=== PATIENT | female | born 2000 | race African-American/Black ===

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

== ENCOUNTER 2018-02-24 16:27 | Emergency (ER) | payer SELFPAY ==
[2018-02-24 16:57] LABS: #Basophils 0.1 thou/uL (0.0-0.2); #Eosinphils 0.2 thou/uL (0.0-0.7); #Lymphocytes 1.9 thou/uL (1.20-3.40); #Monocytes 0.4 thou/uL (0.11-0.59); #Neutrophils 2.4 thou/uL (1.40-6.50); %Basophils 1.1 % (0.0-1.0); %Eosinophils 3.1 % (0.0-10.0); %Lymphocytes 39.2 % (28.0-48.0); %Monocytes 7.9 % (0.0-4.0); %Neutrophils 48.7 % (31.0-61.0); Mean Corpuscular HGB CONC 33.3 g/dL (32.0-36.0); Mean Corpuscular Hemoglobin 32.5 pg (25.0-35.0); Mean Corpuscular Volume 97.7 fL (78.0-98.0); Mean Platelet Volume 8.2 fL (7.4-10.4); Platelet Count 268 thou/uL (130-400); Red Blood Cell (RBC) Count 3.38 mill/uL (4.00-5.20); White Blood Cell (WBC) Count 4.8 thou/uL (4.8-10.8)
[2018-02-24 17:19] LABS: ALT (SGPT) Less than 7 U/L (8-55); AST (SGOT) 14 U/L (5-34); Albumin 4.2 g/dL (3.5-5.0); Alkaline Phosphatase 70 U/L (40-150); Anion Gap 11 mmol/L (10-20); BUN (Urea Nitrogen) 6 mg/dL (7.0-18.7); Bilirubin, Total 0.5 mg/dL (0.2-1.2); Calc. Creatinine Clearance 0 mL/min (70-130); Calcium 9.3 mg/dL (7.8-10.44); Carbon Dioxide 22 mmol/L (22-29); Chloride 107 mmol/L (98-107); Estimated GFR-MDRD Greater than 90; Glucose 99 mg/dL (70-105); Lipase 11 U/L (8-78); Potassium 3.7 mmol/L (3.5-5.1); Protein, Total 7.2 g/dL (6.0-8.3); Sodium 136 mmol/L (136-145)
[2018-02-24 17:27] LABS: Bilirubin Small (Negative); Blood, Urine Negative (Negative); Clarity CLEAR (Clear); Glucose, Urine (Dipstick) Negative (Negative); Leukocyte Negative (Negative); Nitrite Negative (Negative); Protein, Urine (Dipstick) Trace mg/dL (Neg-Trace); Specific Gravity, Urine 1.033 (1.002-1.036); pH, Urine 5.5 (5.0-9.0)
[2018-02-24 17:29] LABS: Pregnancy Test - Urine (BHCG) Negative (Negative); Pregu Control Background? CLEAR/WHITE (CLR/WHITE); Pregu Control Bar Appear? YES (CONTROL BAR); Specific Gravity 1.033 (1.002-1.036)
== END 2018-02-24 18:41 | disposition home or self-care (01) ==
LOC: ERS 16:27
DX: R10.30 Lower abdominal pain, unspecified (principal)
CPT/HCPCS: 36415; 80053; 81003; 81025; 83690; 85025; 99284

== ENCOUNTER 2018-04-16 17:36 | Emergency (ER) | payer SELFPAY | END 2018-04-16 18:25 | disposition home or self-care (01) | LOC: ERS 17:36 | DX: H92.01 Otalgia, right ear (principal) | CPT/HCPCS: 99282 ==

== ENCOUNTER 2018-05-17 16:03 | Emergency (ER) | payer SELFPAY ==
[2018-05-17] MEDS ORDERED: Benzonatate 100 MG CAP ONE (16:43)
== END 2018-05-17 17:15 | disposition home or self-care (01) ==
LOC: ERS 16:03
DX: K08.89 Other specified disorders of teeth and supporting structures (principal)
CPT/HCPCS: 99282

== ENCOUNTER 2018-06-26 09:54 | Emergency (ER) | payer SELFPAY | END 2018-06-26 10:17 | disposition home or self-care (01) | LOC: ERS 09:54 | DX: K02.9 Dental caries, unspecified (principal) | CPT/HCPCS: 99282 ==

== ENCOUNTER 2018-07-13 15:06 | Emergency (ER) | payer SELFPAY | END 2018-07-13 15:20 | disposition home or self-care (01) | LOC: ERS 15:06 | DX: K03.81 Cracked tooth (principal); K02.9 Dental caries, unspecified | CPT/HCPCS: 99282 ==

== ENCOUNTER 2018-08-08 20:38 | Emergency (ER) | payer SELFPAY ==
[2018-08-08 20:57] LABS: Bilirubin Negative (Negative); Blood, Urine Negative (Negative); Clarity CLEAR (Clear); Glucose, Urine (Dipstick) Negative (Negative); Leukocyte Small (Negative); Nitrite Negative (Negative); Protein, Urine (Dipstick) Trace mg/dL (Neg-Trace); Specific Gravity, Urine 1.024 (1.002-1.036)
[2018-08-08 20:59] LABS: Bacteria/HPF Rare-Few HPF (None Seen); Hyaline Casts/LPF 4-6 HYALINE CAST LPF (0-3 Hyaline); Pregnancy Test - Urine (BHCG) Negative (Negative); Pregu Control Background? CLEAR/WHITE (CLR/WHITE); Pregu Control Bar Appear? YES (CONTROL BAR); RBC/HPF 0-3 HPF (0-3); Specific Gravity 1.024 (1.002-1.036)
[2018-08-08 21:02] LABS: #Basophils 0.1 thou/uL (0.0-0.2); #Eosinphils 0.1 thou/uL (0.0-0.7); #Lymphocytes 2.1 thou/uL (1.20-3.40); #Monocytes 0.5 thou/uL (0.11-0.59); #Neutrophils 2.7 thou/uL (1.40-6.50); %Basophils 1.8 % (0.0-1.0); %Eosinophils 1.5 % (0.0-10.0); %Lymphocytes 38.2 % (28.0-48.0); %Monocytes 8.9 % (0.0-4.0); %Neutrophils 49.6 % (31.0-61.0); Hemoglobin 10.7 g/dL (12.0-16.0); Mean Corpuscular Hemoglobin 31.5 pg (25.0-35.0); Mean Corpuscular Volume 95.4 fL (78.0-98.0); Mean Platelet Volume 8.1 fL (7.4-10.4); Platelet Count 286 thou/uL (130-400); RBC Distribution Width 12.3 % (11.5-14.5); Red Blood Cell (RBC) Count 3.39 mill/uL (4.00-5.20); White Blood Cell (WBC) Count 5.4 thou/uL (4.8-10.8)
[2018-08-08 21:19] LABS: ALT (SGPT) 10 U/L (8-55); AST (SGOT) 14 U/L (5-34); Albumin 4.4 g/dL (3.5-5.0); Alkaline Phosphatase 76 U/L (40-150); Anion Gap 10 mmol/L (10-20); BUN (Urea Nitrogen) 8 mg/dL (7.0-18.7); Bilirubin, Total 0.5 mg/dL (0.2-1.2); Calc. Creatinine Clearance 0 mL/min (70-130); Calcium 9.7 mg/dL (7.8-10.44); Carbon Dioxide 23 mmol/L (22-29); Chloride 105 mmol/L (98-107); Estimated GFR-MDRD Greater than 90; Globulin 3.1 g/dL (2.4-3.5); Glucose 88 mg/dL (70-105); Potassium 3.3 mmol/L (3.5-5.1); Protein, Total 7.5 g/dL (6.0-8.3); Sodium 135 mmol/L (136-145)
== END 2018-08-08 21:50 | disposition home or self-care (01) ==
LOC: ERS 20:38
DX: N39.0 Urinary tract infection, site not specified (principal)
CPT/HCPCS: 36415; 80053; 81003; 81015; 81025; 85025; 99284

== ENCOUNTER 2018-09-23 16:21 | Emergency (ER) | payer SELFPAY | END 2018-09-23 17:15 | disposition home or self-care (01) | LOC: ERS 16:21 | DX: K02.9 Dental caries, unspecified (principal) | CPT/HCPCS: 99281 ==

== ENCOUNTER 2018-11-01 21:25 | Emergency (ER) | payer SELFPAY | END 2018-11-01 21:54 | disposition home or self-care (01) | LOC: ERS 21:25 | DX: K03.81 Cracked tooth (principal) | CPT/HCPCS: 99281 ==

== ENCOUNTER 2019-04-27 23:10 | Emergency (ER) | payer OTHER ==
[2019-04-27 23:35] LABS: #Lymphocytes 1.2 thou/uL (1.20-3.40); #Monocytes 0.4 thou/uL (0.11-0.59); #Neutrophils 5.7 thou/uL (1.40-6.50); %Basophils 0.5 % (0.0-1.0); %Eosinophils 0.2 % (0.0-10.0); %Lymphocytes 16.2 % (21.0-51.0); %Monocytes 5.2 % (0.0-10.0); %Neutrophils 77.8 % (42.0-75.0); Hemoglobin 11.4 g/dL (12.0-16.0); Mean Corpuscular HGB CONC 35.1 g/dL (32.0-36.0); Mean Corpuscular Hemoglobin 32.6 pg (27.0-31.0); Mean Platelet Volume 8.4 fL (7.4-10.4); Platelet Count 287 thou/uL (130-400); RBC Distribution Width 12.2 % (11.5-14.5); White Blood Cell (WBC) Count 7.3 thou/uL (4.8-10.8)
[2019-04-27 23:39] LABS: Bacteria/HPF 3+ HPF (None Seen); Bilirubin Negative (Negative); Blood, Urine 3+ (Negative); Clarity Turbid (Clear); Glucose, Urine (Dipstick) Normal (Negative); Leukocyte 500 Leu/uL (Negative); Mucous/LPF 1+ LPF (<2+); Nitrite Negative (Negative); Protein, Urine (Dipstick) 100 mg/dL (Neg-Trace); RBC/HPF 0-3 HPF (0-3); Squamous Epithelial 21-50 HPF (0-3); Urobilinogen Normal mg/dL (Less than 2)
[2019-04-27 23:56] LABS: ALT (SGPT) 13 U/L (8-55); AST (SGOT) 27 U/L (5-34); Albumin 4.5 g/dL (3.5-5.0); Alkaline Phosphatase 77 U/L (40-110); Anion Gap 12 mmol/L (10-20); BUN (Urea Nitrogen) 5 mg/dL (7.0-18.7); Bilirubin, Total 0.8 mg/dL (0.2-1.2); Calc. Creatinine Clearance 0 mL/min (70-130); Calcium 9.8 mg/dL (7.8-10.44); Carbon Dioxide 20 mmol/L (22-29); Chloride 105 mmol/L (98-107); Estimated GFR-MDRD Greater than 90; Globulin 3.2 g/dL (2.4-3.5); Glucose 117 mg/dL (70-105); Lipase 8 U/L (8-78); Potassium 3.5 mmol/L (3.5-5.1); Protein, Total 7.7 g/dL (6.0-8.3); Sodium 133 mmol/L (136-145)
[2019-04-28] MEDS ORDERED: Metoclopramide HCl 10 MG/2 ML VIAL ONE (01:01)
== END 2019-04-28 03:26 | disposition home or self-care (01) ==
LOC: ERS 23:10
DX: O20.9 Hemorrhage in early pregnancy, unspecified (principal); O21.9 Vomiting of pregnancy, unspecified; Z3A.01 Less than 8 weeks gestation of pregnancy
CPT/HCPCS: 36415; 80053; 81003; 81015; 83690; 84702; 85025; 87077; 87086; 87186; 99284; J2765

== ENCOUNTER 2019-12-01 21:51 | Day surgery (SDC) | payer OTHER ==
[2019-12-01 23:00] VITALS: BMI 25.6
[2019-12-01] MEDS ORDERED: hydrALAZINE 20 MG/ML VIAL SLOW IVP PRN (23:22)
[2019-12-01 23:43] LABS: Amnisure Internal Control QC ACCEPTABLE (ACCEPTABLE); Amnisure Test No Membranes Rupture (No Rupture)
[2019-12-02] MEDS ORDERED: Promethazine HCl 25 MG/ML VIAL IM SCH (00:15)
[2019-12-02] MEDS ORDERED: Morphine 4 MG/ML VIAL IM SCH (00:15)
--- NOTE | 2019-12-02 00:50 | PRG ---
DATE OF SERVICE: 12/02/2019 PRIMARY OB: Ms. Maria D Rivera. CHIEF COMPLAINT: Abdominal pains. HISTORY OF PRESENT ILLNESS: The patient is a 19-year-old, G1, P0 female with an intrauterine at 37 weeks and 2 days, presenting to Labor and Delivery with complaints of abdominal pains that she says began about a week ago, but it gotten worse over the course of the day today. She reports that the pain that she saw Ms. Killian in clinic today and was told that she was about 4 cm. She reports the pain seems to be most best described as sharp, worse with activity and movement such as trying to get up, got out of the bed, walking and other activity. The patient reports that she has had a little bit of watery discharge today also. She denies vaginal bleeding. She denies fever, cough, chest pain, shortness of breath, nausea, vomiting, diarrhea, constipation, hip problems, knee problems, or muscle weakness. PAST MEDICAL HISTORY: Negative. PAST SURGICAL HISTORY: Negative. ALLERGIES: NO KNOWN DRUG ALLERGIES. MEDICATIONS: vitamins. OB LABS: Unavailable at time of dictation. SOCIAL HISTORY: Denies drug, alcohol, or tobacco use. REVIEW OF SYSTEMS: Per HPI. PHYSICAL EXAMINATION: VITAL SIGNS: Blood pressure 112/55, heart rate of 77, and respiratory rate of 18. GENERAL: She appears to be in no acute distress. She is alert, oriented, cooperative, and pleasant to interact with. HEAD: Normocephalic and atraumatic. LUNGS: Clear to auscultation bilaterally. HEART: Has regular rate and rhythm. ABDOMEN: Gravid and soft. EXTREMITIES: Nontender and nonedematous. CERVICAL EXAM: Per nursing staff is 3, 80, -1 station. DIAGNOSTIC DATA: heart tracing shows the fetus with a baseline in the 140s with moderate long-term variability, positive 15 x 15 accelerations, no decelerations. Tocometer showing a lot of irritability, not consistently felt by the patient. AmniSure test is negative. ASSESSMENT AND PLAN: The patient is a 19-year-old female with an intrauterine at 37 weeks and 3 days, having contractions, but I do not believe this is the primary source of her pain. As by history, her pain is most consistent with musculoskeletal pains of . She has had no cervical change from her visit in the office earlier in the day. The patient [place] town. She and her mom are both anxious to get home. She has asked for some pain medicine to help or have some rest for few hours. She has been given term labor precautions. She will be given 6 mg of morphine and 25 of Phenergan IM. Fetus has a category 1 tracing and reactive NST. The patient has been asked to keep her appointment with her primary provider, Ms. Maria D Rivera, certified nurse-light cleaner. Job ID: [id number]
== END 2019-12-02 01:15 | disposition home or self-care (01) ==
LOC: L&D/OP 21:51
PROVIDERS: ATTEND Obstetrics & Gynecology
DX: O99.89 Other specified diseases and conditions complicating pregnancy, childbirth and the puerperium (principal); R10.9 Unspecified abdominal pain; O47.1 False labor at or after 37 completed weeks of gestation; Z3A.37 37 weeks gestation of pregnancy; Z91.048 Other nonmedicinal substance allergy status
CPT/HCPCS: 59025; 84112; 96372; 99282; J2270; J2550

== ENCOUNTER 2019-12-03 11:19 | Observation (INO) | payer OTHER ==
[2019-12-03 11:50] VITALS: BP 120/82; TEMP 98.7; BMI 25.6
[2019-12-03] MEDS ORDERED: hydrALAZINE 20 MG/ML VIAL SLOW IVP PRN ×2 (13:41→13:49)
[2019-12-03] MEDS ORDERED: Morphine 4 MG/ML VIAL IM SCH (13:45)
[2019-12-03] MEDS ORDERED: Promethazine HCl 25 MG/ML VIAL IM SCH (13:45)
[2019-12-03] MEDS ORDERED: Promethazine HCl 25 MG/ML VIAL IM PRN (13:49)
[2019-12-03] MEDS ORDERED: Ondansetron PF 4 MG/2 ML Vial IVP PRN (13:49)
[2019-12-03] MEDS ORDERED: Lactated Ringer's 1,000 ML IV SCH (14:00)
--- NOTE | 2019-12-03 15:19 | ULT ---
Exam: Limited OB ultrasound HISTORY: Vaginal bleeding; assess for placental abruption COMPARISON: None TECHNIQUE: Limited OB ultrasound was performed FINDINGS: Presentation: Vertex Cervix: Cannot be assessed due to shadowing Placenta: Maternal right. Amniotic fluid index: 10.8 cm heart tones: 135 bpm biometry: BPD: 9.17 cm, 37 weeks 2 days Head circumference: 33.34 cm, 38 weeks 1 day Abdominal circumference: 33.39 cm, 37 weeks 2 days Femur length: 7.09 cm, 36 weeks 2 days Average age by sonography is 37 weeks 2 days Estimated weight is 3129 g +/- 4 163 g Estimated weight percentage: 40% IMPRESSION: 1. Single intrauterine gestation. heart tones. 2. Average age by sonography is 37 weeks 2 days. 3. No evidence of placental abruption. Findings of the study conveyed to Adina L&D nurse on 12/03/2019 at 3:16 PM Code CR
--- NOTE | 2019-12-04 03:40 | SS ---
DATE OF ADMISSION: 12/03/2019 DATE OF DISCHARGE: 12/03/2019 PRIMARY OB: Ms. Maria D Rivera. CHIEF COMPLAINT: Abdominal pains. HISTORY OF PRESENT ILLNESS: Patient is a 19-year-old, G1, P0 female with an intrauterine at 37 weeks and 4 days, presenting to Labor and Delivery with increasing uterine contractions, for which she had presented a couple of days earlier. Patient denies leakage of fluid or vaginal bleeding. She denies fever, headache, chest pain, shortness of breath, nausea, vomiting, diarrhea, constipation, hip problems, knee problems, muscle weakness, urinary urgency or frequency. Patient did report that she had some bleeding and a pad earlier in the day that looked like period bleeding. PAST MEDICAL HISTORY: Negative. PAST SURGICAL HISTORY: Negative. ALLERGIES: NO KNOWN DRUG ALLERGIES. MEDICATIONS: vitamins. OB LABS: Unavailable at the time of dictation. SOCIAL HISTORY: Denies drug, alcohol, or tobacco use. REVIEW OF SYSTEMS: Per HPI. PHYSICAL EXAMINATION: VITAL SIGNS: Blood pressure 120/82, heart rate of 100, respiratory rate of 18, saturating 100% on room air, and temperature 98.7. GENERAL: She appears to be in no acute distress. She is alert, oriented, cooperative, and pleasant to interact with. HEAD: Normocephalic and atraumatic. LUNGS: Clear to auscultation bilaterally. HEART: Has regular rate and rhythm. ABDOMEN: Gravid, soft, and nontender. EXTREMITIES: Nontender and nonedematous. CERVICAL EXAM: 4, 90, and -1 station, which is essentially unchanged from approximately 36 hours previous. heart tracing shows the fetus with a baseline in the 140s with marked long-term variability, positive accelerations, no decelerations. Tocometer showing a great deal of irritability and long stretches of contractions about every minute. Reexamination of the maternal abdomen again confirmed that the abdomen does not show any significant tenderness in-between contractions. LABORATORIES: Fibrinogen is 478. ULTRASOUND: ultrasound is performed and showed no obvious evidence of abruption. Given the overall marked variability and the very frequent irregular contraction pattern, decision was made to keep the patient for observation. The ultrasound and fibrinogen were drawn looking for evidence of abruption. However, those did not show any concerning signs. The patient received IV fluids and was in observation for approximately 6 hours by which time the tracing had converted to a baseline in the 130s with moderate long-term variability, positive 15 x 15 accelerations and the contraction pattern, though irregular did demonstrate contractions about every 6 to 7 minutes with short bursts of irritability. Again, patient during her stay was given 6 mg of morphine IM and 25 of Phenergan IM, for which she was able to rest comfortably. When patient was discharged, she had good pain control. Fetus had a category 1 tracing and had no evidence of active labor. Patient was discharged home with term labor precautions and was counseled to follow up with her primary OB as scheduled. Job ID: [id number]
== END 2019-12-03 17:31 | disposition home health service, planned readmission (86) ==
LOC: L&D/OP 11:19 → L&D 13:51
PROVIDERS: ADMIT Obstetrics & Gynecology; ATTEND Obstetrics & Gynecology
DX: O47.1 False labor at or after 37 completed weeks of gestation (principal); Z3A.37 37 weeks gestation of pregnancy; Z88.8 Allergy status to other drugs, medicaments and biological substances
CPT/HCPCS: 36415; 76815; 85384; 86850; 86900; 86901; 96372; G0378; J2270; J2550

== ENCOUNTER 2019-12-06 11:19 | Inpatient (IN) | payer OTHER ==
[~2019-12-06 11:19] MED LIST: Bupivacaine HCl 0.5%/Epinephrine 1:200,000/PF 30 ml Vial ONE
[2019-12-06] MEDS ORDERED: hydrALAZINE 20 MG/ML VIAL SLOW IVP PRN (15:23)
[2019-12-06] MEDS ORDERED: Lidocaine 1% (PF) 30 ML VIAL SC PRN (15:23)
[2019-12-06] MEDS ORDERED: Ondansetron PF 4 MG/2 ML Vial IVP PRN (15:23)
[2019-12-06] MEDS ORDERED: Butorphanol Tartrate 1 MG/ML VIAL SLOW IVP PRN (15:23)
[2019-12-06] MEDS ORDERED: Promethazine HCl 25 MG/ML VIAL IM PRN (15:23)
[2019-12-06] MEDS ORDERED: Ibuprofen 800 MG TAB PO PRN (15:23)
[2019-12-06] MEDS ORDERED: HYDROcodone/Acetaminophen 5/325 mg Tablet PO PRN ×2 (15:23)
[2019-12-06] MEDS ORDERED: NS / Oxytocin 40 units/1000ml 1,000 ML IV PRN (15:23)
[2019-12-06] MEDS ORDERED: Penicillin G Potassium 5 MILL.UNITS in Sodium Chloride 0.9% 100 ML IVPB SCH (15:30)
[2019-12-06] MEDS ORDERED: NS w/ Oxytocin 10 units 500 ML IV SCH (15:30)
[2019-12-06] MEDS ORDERED: Penicillin G Potassium 5 MILL.UNITS VIAL ONE (15:33)
[2019-12-06 15:37] LABS: Hemoglobin 11.6 g/dL (12.0-16.0); Mean Corpuscular HGB CONC 34.2 g/dL (32.0-36.0); Mean Corpuscular Hemoglobin 33.6 pg (27.0-31.0); Mean Corpuscular Volume 98.5 fL (78.0-98.0); Mean Platelet Volume 9.6 fL (7.4-10.4); Platelet Count 180 thou/uL (130-400); RBC Distribution Width 11.5 % (11.5-14.5); Red Blood Cell (RBC) Count 3.45 mill/uL (4.20-5.40); White Blood Cell (WBC) Count 7.9 thou/uL (4.8-10.8)
[2019-12-06 15:45] VITALS: BMI 25.6
[2019-12-06] MEDS: Lactated Ringer's 1,000 ML IV SCH (16:04)
[2019-12-06 16:17] LABS: Syphilis Antibody Nonreactive (Nonreactive); Syphilis Antibody Index 0.11 S/CO (<1.00 Non-Reactive)
[2019-12-06 16:18] LABS: HBSAg Index 0.22 S/CO (0-0.99); Hep B Surf Ag Non-Reactive S/CO (NonReactive)
--- NOTE | 2019-12-06 16:48 | PDOC.LDHP ---
Labor and Delivery H&P Chief complaint: contractions HPI: Pt is having contractions again. Last night they were irregular again. But today they started getting in a better pattern. Due date: 12/20/19 Dating criteria: second trimester ultrasound Grav: 1 Para: 0 OB History Details: CT + neg JORDIN 09/28/19 Current complications: other (Late to care) Current medications: pre- vitamins Previous surgical history: none Allergies/Adverse Reactions: Allergies Allergy/AdvReac Type Severity Reaction Status Date / Time nickel Allergy Verified 12/03/19 11:47 No Known Drug Allergies Allergy Verified 12/02/19 00:39 Social history: none - Physical Exam Vital signs reviewed and normal: yes General: breathing through contractions Lungs: nonlabored breathing Abdomen: gravid FHT: category 1 - Vaginal Exam cm dilated: 5 Effacement: 90% Station: 0 - OB Labs Blood type: O RH: positive Antibody Screen: negative HIV: negative RPR: negative HEPSAg: negative 1 hour GCT: negative GBS: positive Urine drug screen: negative Rubella: immune - Assessment L&D Assessment: term patient in labor - Plan Plan: admit to L&D, GBS antibiotic prophylaxis, anesthesia consult for pain management (AROM clear fluid.)
[2019-12-06] MEDS ORDERED: Fentanyl 4 mcg/Bup 0.1% Cadd 100 ML ONE (17:02)
[2019-12-06] MEDS: Penicillin G 2.5 MILL.units 2.5 MILL.UNITS in Premix Bag 1 BAG IVPB SCH (19:45)
[2019-12-06] MEDS ORDERED: Acetaminophen 500 MG TAB PO SCH (20:15)
--- NOTE | 2019-12-06 22:46 | PDOC.OPDEL ---
OB Operative/Delivery Note Delivery Dr/Surgeon: Ted Rivera Pre-Delivery Diagnosis: active labor Procedure/Post Delivery Dx: spontaneous vaginal delivery Weeks gestation: 38 Anesthesia: epidural - Findings A Sex: male Weight: 6 lb 13 oz - 1 min: 8 - 5 min: 9 - Additional Findings/Plan Placenta delivered: spontaneous Repaired Obstetrical Laceration: none Estimated blood loss: 150mL Post delivery plan: routine recovery
[2019-12-07] MEDS ORDERED: Bisacodyl 10 MG SUPP PR PRN (01:19)
[2019-12-07] MEDS ORDERED: NS / Oxytocin 40 units/1000ml 1,000 ML IV SCH (01:19)
[2019-12-07] MEDS ORDERED: hydrALAZINE 20 MG/ML VIAL SLOW IVP PRN (01:19)
[2019-12-07] MEDS ORDERED: Methylergonovine 0.2 MG/ML VIAL IM PRN (01:19)
[2019-12-07] MEDS ORDERED: Milk Of Magnesia 30 ML UDCUP PO PRN (01:19)
[2019-12-07] MEDS ORDERED: Benzocaine-Menthol 82.5 ML CAN TOP PRN (01:19)
[2019-12-07] MEDS ORDERED: HYDROcodone/Acetaminophen 5/325 mg Tablet PO PRN ×2 (01:19)
[2019-12-07] MEDS ORDERED: Misoprostol 200 MCG TAB VAG PRN (01:19)
[2019-12-07] MEDS: Ibuprofen 800 MG TAB PO SCH ×3 (05:26→21:02)
[2019-12-07] MEDS: Ferrous Sulfate 325 MG TAB PO SCH ×2 (08:49→16:38)
[2019-12-07] MEDS: Prenatal Vitamin 1 TAB PO SCH (08:49)
[2019-12-07] MEDS: Docusate Calcium (SURFAK) 240 MG CAP PO SCH ×2 (08:49→21:02)
[2019-12-07] MEDS ORDERED: Adacel (T-DAP) 0.5 ML SYRINGE IM ONE (09:00)
[2019-12-07] MEDS: Lactated Ringer's 1,000 ML IV SCH (16:39)
[2019-12-07] MEDS: Penicillin G 2.5 MILL.units 2.5 MILL.UNITS in Premix Bag 1 BAG IVPB SCH (16:39)
[2019-12-08] MEDS: Ibuprofen 800 MG TAB PO SCH ×2 (06:25→15:01)
[2019-12-08] MEDS: Docusate Calcium (SURFAK) 240 MG CAP PO SCH (08:28)
[2019-12-08] MEDS: Prenatal Vitamin 1 TAB PO SCH (08:28)
[2019-12-08] MEDS: Ferrous Sulfate 325 MG TAB PO SCH (08:29)
[2019-12-08 09:25] VITALS: BP 114/59; TEMP 98.2
--- NOTE | 2019-12-08 12:50 | PDOC.PP ---
Post Progress Note Post Day #: 1 Subjective: Pt is doing well. Up in shower. No questions. PO intake tolerated: yes Flatus: yes Ambulation: yes Vital Signs (12 hours) Temp Pulse Resp BP 12/08/19 08:00 98.2 F 66 16 114/59 L Weight Weight 140 lb - Physical Examination General: NAD Respiratory: non-labored breathing Abdominal: no distention Extremities: negative homans (B) Skin: no rash Neurological: no gross focal deficits Psychiatric: A&Ox3, normal affect Result Diagrams: 12/06/19 15:29 Additional Labs: Post Labs Blood Type O POSITIVE 12/06/19 15:29 Hep Bs Antigen Non-Reactive S/CO (NonReactive) 12/06/19 15:29 (1) (spontaneous vaginal delivery) Code(s): O80 - ENCOUNTER FOR FULL-TERM UNCOMPLICATED DELIVERY Status: Acute - Assessment/Plan A: s/p with NML PPD1 exam. P: routine pp care
== END 2019-12-08 16:10 | disposition home or self-care (01) | DRG 807 ==
LOC: L&D/OP 11:19 → L&D 15:53 → 3SW 12-07 01:44
PROVIDERS: ADMIT Obstetrics & Gynecology; ATTEND Advanced Practice Midwife
PROC: 10E0XZZ Delivery of Products of Conception, External Approach (ICD-10-PCS; principal; 2019-12-06)
PROC: 10907ZC Drainage of Amniotic Fluid, Therapeutic from Products of Conception, Via Natural or Artificial Opening (ICD-10-PCS; 2019-12-06)
DX: O99.824 Streptococcus B carrier state complicating childbirth (principal); Z37.0 Single live birth; Z3A.38 38 weeks gestation of pregnancy
CPT/HCPCS: 36415; 51702; 85027; 86780; 86850; 86900; 86901; 87340; 99285; J0595; J0670; J2405; J2540; J2590

== ENCOUNTER 2020-04-01 19:01 | Emergency (ER) | payer OTHER ==
[2020-04-01 20:01] LABS: Bilirubin Negative (Negative); Blood, Urine Negative (Negative); Clarity Clear (Clear); Glucose, Urine (Dipstick) Normal (Negative); Ketone, Urine Negative (Negative); Leukocyte Negative Leu/uL (Negative); Nitrite Negative (Negative); Protein, Urine (Dipstick) 10 mg/dL (Neg-Trace); Specific Gravity, Urine 1.028 (1.002-1.036); Urobilinogen Normal mg/dL (Less than 2); pH, Urine 6.5 (5.0-9.0)
[2020-04-01 20:02] LABS: Pregnancy Test - Urine (BHCG) Negative (Negative); Pregu Control Background? CLEAR/WHITE (CLR/WHITE); Pregu Control Bar Appear? YES (CONTROL BAR); Specific Gravity 1.028 (1.002-1.036)
[2020-04-01 20:09] LABS: #Eosinphils 0.1 thou/uL (0.0-0.7); #Lymphocytes 2.3 thou/uL (1.20-3.40); #Monocytes 0.4 thou/uL (0.11-0.59); #Neutrophils 2.2 thou/uL (1.40-6.50); %Basophils 0.8 % (0.0-1.0); %Eosinophils 2.3 % (0.0-10.0); %Lymphocytes 45.2 % (21.0-51.0); %Monocytes 7.8 % (0.0-10.0); Hemoglobin 12.2 g/dL (12.0-16.0); Mean Corpuscular HGB CONC 34.3 g/dL (32.0-36.0); Mean Corpuscular Volume 96.3 fL (78.0-98.0); Mean Platelet Volume 8.6 fL (7.4-10.4); Platelet Count 255 thou/uL (130-400); RBC Distribution Width 11.4 % (11.5-14.5); Red Blood Cell (RBC) Count 3.69 mill/uL (4.20-5.40)
[2020-04-01] MEDS ORDERED: Ibuprofen 200 MG TAB ONE (20:11)
[2020-04-01] MEDS ORDERED: Acetaminophen 500 MG TAB ONE (20:11)
[2020-04-01 20:29] LABS: ALT (SGPT) 10 U/L (8-55); AST (SGOT) 12 U/L (5-34); Alkaline Phosphatase 90 U/L (40-110); Anion Gap 11 mmol/L (10-20); BUN (Urea Nitrogen) 9 mg/dL (7.0-18.7); Bilirubin, Total 0.4 mg/dL (0.2-1.2); Calc. Creatinine Clearance 0 mL/min (70-130); Calcium 8.8 mg/dL (7.8-10.44); Carbon Dioxide 21 mmol/L (22-29); Chloride 109 mmol/L (98-107); Estimated GFR-MDRD Greater than 90; Globulin 2.9 g/dL (2.4-3.5); Glucose 108 mg/dL (70-105); Potassium 3.7 mmol/L (3.5-5.1); Protein, Total 6.9 g/dL (6.0-8.3); Sodium 137 mmol/L (136-145)
== END 2020-04-01 21:31 | disposition home or self-care (01) ==
LOC: ERS 19:01
DX: R10.30 Lower abdominal pain, unspecified (principal)
CPT/HCPCS: 36415; 80053; 81003; 81025; 85025; 99284

== ENCOUNTER 2020-05-21 22:20 | Emergency (ER) | payer OTHER | END 2020-05-21 23:20 | disposition home or self-care (01) | LOC: ERS 22:20 | DX: K02.9 Dental caries, unspecified (principal) | CPT/HCPCS: 99282 ==

== ENCOUNTER 2020-10-29 14:31 | Emergency (ER) | payer OTHER ==
[2020-10-29] MEDS ORDERED: Ketorolac Tromethamine 30 MG/ML VIAL ONE (15:23)
== END 2020-10-29 15:36 | disposition home or self-care (01) ==
LOC: ERS 14:31
DX: U07.1 COVID-19 (principal)
CPT/HCPCS: 96372; 99284; J1885